=== PATIENT | female | born 1980 | race Caucasian/White ===

== ENCOUNTER 2020-10-09 08:10 | Emergency (ER) | payer BC, OTHER ==
[~2020-10-09] VITALS: Ht 162.6 cm; Wt 91.2 kg
[~2020-10-09 08:10] MED LIST: ACYC800 PO; ALBU90OI61 INH; ANTIBIOTIC; BCP; CEPH500 PO; CODGUAEL PO; Crutch1 EACH MISC; FAMC500 PO; FAMO20 PO; HYDACE5 PO; Norco 5-325 Ta1 EACH PO; OXYACE5T PO; PROM25 PO; RXCLIN PO; RXHYDACE PO; RXPROM25 PO; SULTRIDS PO; TRAM50 PO
[2020-10-09] MEDS ORDERED: PRENATAL TABLE1 EAC2 PO (08:25)
== END 2020-10-09 10:25 | disposition home or self-care (01) ==
LOC: ER 08:10
DX: O99.891 Other specified diseases and conditions complicating pregnancy (principal); R10.32 Left lower quadrant pain; Z88.2 Allergy status to sulfonamides; Z88.1 Allergy status to other antibiotic agents; Z88.0 Allergy status to penicillin; Z3A.20 20 weeks gestation of pregnancy
CPT/HCPCS: 76815; 99284-25

== ENCOUNTER 2021-04-29 06:14 | Day surgery (SDC) | payer BC, OTHER ==
[~2021-04-29] VITALS: Ht 162.6 cm; Wt 87.1 kg
[~2021-04-29 06:14] MED LIST changes: +IBUP800 PO; +PRENATAL TABLE1 EAC2 PO
--- NOTE | 2021-04-29 07:27 | NUR ---
04/29/21 [address] SANCHEZ OF CEPHLASPORIN ALLERGY, HE CONSULTS WITH PT AND KEEPS THE ORDER FOR ANCEF.
--- NOTE | 2021-04-29 08:05 | NUR ---
04/29/21 0805 Mitesh Lebron 0.15MG EPI ADDED TO 30 ML'S 0.75% MARCAINE TO ACHIEVE SOLUTION OF 0.75% MARCAINE WITH EPI 1:200,000. EPI DOSE VERIFIED BY DR. FRYE.
--- NOTE | 2021-04-29 09:15 | NUR ---
04/29/21 0915 Kaur Esparza PT STATES PAIN IS 6/10 AND REFUSES PAIN MEDS AT THIS TIME. BOYFRIEND CHAZ IS AT CHAIRSIDE.
== END 2021-04-29 10:05 | disposition home or self-care (01) ==
LOC: ORSCSDS 06:14
PROVIDERS: Obstetrics & Gynecology
PROC: 0UT74ZZ Resection of Bilateral Fallopian Tubes, Percutaneous Endoscopic Approach (ICD-10-PCS; principal; 2021-04-29 07:30)
DX: Z30.2 Encounter for sterilization (principal); Q50.5 Embryonic cyst of broad ligament; N80.3 Endometriosis of pelvic peritoneum; F17.210 Nicotine dependence, cigarettes, uncomplicated
CPT/HCPCS: 88302; A9270; J0171; J0690; J1100; J1885; J2405; J2704; J3010; J7120

== ENCOUNTER 2022-08-31 13:07 | Emergency (ER) | payer BC, OTHER ==
[~2022-08-31] VITALS: Ht 162.6 cm; Wt 85.7 kg
[2022-08-31 13:31] LABS: Source, Urine Clean Catch
[2022-08-31 13:42] LABS: Appearance, Urine Clear (Clear); Bilirubin, Urine Neg (Neg); Blood, Urine Neg (Neg); Color, Urine Yellow (P-Yellow); Glucose Qualitative, Urine Neg (Neg); Ketones, Urine Neg (Neg); Leukocyte Esterase, Urine 1+ (Neg); Nitrite, Urine Neg (Neg); Protein, Urine 1+ (Neg); Specific Gravity, Urine 1.025 (1.003-1.022); Urobilinogen, Urine 1+ (Normal)
[2022-08-31 13:49] LABS: Bacteria Mod /hpf; Red Blood Cells, Urine 0-2 /hpf (0-2); Squamous Epithelial Cells Few /hpf (Few)
[2022-08-31 13:58] LABS: BASOPHILS ABSOLUTE AUTO 0.02 K/mm3 (0.00-0.23); BASOPHILS PERCENT AUTO 0 % (0-2); EOSINOPHILS ABSOLUTE AUTO 0.09 K/mm3 (0.00-0.68); EOSINOPHILS PERCENT AUTO 1 % (0-6); Hematocrit 36.9 % (33.0-51.0); Hemoglobin 12.6 g/dL (11.5-16.0); IMMATURE GRAN ABSOLUTE AUTO 0.02 K/mm3 (0.00-0.10); IMMATURE GRAN PERCENT AUTO 0 % (0-1); LYMPHOCYTES ABSOLUTE AUTO 2.15 K/mm3 (0.84-5.20); LYMPHOCYTES PERCENT AUTO 29 % (21-46); MONOCYTES ABSOLUTE AUTO 0.58 K/mm3 (0.16-1.47); MONOCYTES PERCENT AUTO 8 % (4-13); Mean Corpuscular HGB 31.9 pg (26.0-34.0); Mean Corpuscular HGB Conc 34.1 g/dL (31.5-36.5); Mean Corpuscular Volume 93 fL (80-100); Mean Platelet Volume 10.5 fL (9.1-12.4); NEUTROPHILS ABSOLUTE AUTO 4.48 K/mm3 (1.96-9.15); NEUTROPHILS PERCENT AUTO 61 % (41-73); Platelet Count 311 K/mm3 (150-400); RDW Coefficient Variation 12.7 % (11.7-14.2); RDW Standard Deviation 43.7 fL (35.1-46.3); Red Blood Cell Count 3.95 M/mm3 (3.80-5.20); White Blood Cell Count 7.34 K/mm3 (4.00-11.30)
[2022-08-31 14:16] LABS: Albumin, Blood 3.6 g/dL (3.4-5.0); Bilirubin, Total 0.5 mg/dL (0.1-1.0); Bun/Creatinine Ratio 12.2 (12.0-20.0); Calcium, Blood 8.7 mg/dL (8.5-10.1); Creatinine, Blood 0.82 mg/dL (0.40-1.00); Globulin, Blood 3.5 g/dL (2.2-4.0); Potassium, Blood 3.5 mmol/L (3.5-5.5); Total Protein, Blood 7.1 g/dL (6.4-8.2)
[2022-08-31 15:50] VITALS: BP 146/98
[2022-08-31] MEDS ORDERED: NYSTATIN-TRIAMC15 GM TOP (16:50)
[2022-08-31] MEDS ORDERED: NYSTOP15 GM TOP (16:50)
[2022-08-31] MEDS ORDERED: EUTHYROX88 MC1 PO (16:51)
[2022-08-31] MEDS ORDERED: ALDACTONE100 MG PO (16:53)
[2022-08-31] MEDS ORDERED: Pepcid40 MG PO (18:15)
[2022-08-31] MEDS ORDERED: HYDR1TAB94 PO (18:15)
[2022-08-31] MEDS ORDERED: ONDA4ODT SL (18:15)
== END 2022-08-31 18:55 | disposition home or self-care (01) ==
LOC: ER 13:07
PROVIDERS: Student in an Organized Health Care Education/Training Program
DX: R10.11 Right upper quadrant pain (principal); Z88.2 Allergy status to sulfonamides; Z88.1 Allergy status to other antibiotic agents; Z88.0 Allergy status to penicillin; F17.210 Nicotine dependence, cigarettes, uncomplicated
CPT/HCPCS: 36415; 74177; 76705; 80053; 81001; 81025; 83690; 85025; 87086; 93005; 93010; 96374-59; 96375; 99284-25; J1885; J2405; J7120; Q9967

== ENCOUNTER 2022-09-07 08:03 | Emergency (ER) | payer BC, OTHER ==
[~2022-09-07] VITALS: Ht 162.6 cm; Wt 90.3 kg
[~2022-09-07 08:03] MED LIST changes: +ALDACTONE100 MG PO; +EUTHYROX88 MC1 PO; +HYDR1TAB94 PO; +NYSTATIN-TRIAMC15 GM TOP; +NYSTOP15 GM TOP; +ONDA4ODT SL; +Pepcid40 MG PO
[2022-09-07 08:20] VITALS: BP 140/99
[2022-09-07 09:56] LABS: BASOPHILS ABSOLUTE AUTO 0.04 K/mm3 (0.00-0.23); BASOPHILS PERCENT AUTO 1 % (0-2); EOSINOPHILS ABSOLUTE AUTO 0.09 K/mm3 (0.00-0.68); EOSINOPHILS PERCENT AUTO 2 % (0-6); Hematocrit 41.5 % (33.0-51.0); Hemoglobin 14.2 g/dL (11.5-16.0); IMMATURE GRAN ABSOLUTE AUTO 0.01 K/mm3 (0.00-0.10); IMMATURE GRAN PERCENT AUTO 0 % (0-1); LYMPHOCYTES PERCENT AUTO 27 % (21-46); MONOCYTES ABSOLUTE AUTO 0.47 K/mm3 (0.16-1.47); MONOCYTES PERCENT AUTO 9 % (4-13); Mean Corpuscular HGB 31.8 pg (26.0-34.0); Mean Corpuscular HGB Conc 34.2 g/dL (31.5-36.5); Mean Corpuscular Volume 93 fL (80-100); Mean Platelet Volume 10.9 fL (9.1-12.4); NEUTROPHILS PERCENT AUTO 62 % (41-73); Platelet Count 316 K/mm3 (150-400); RDW Coefficient Variation 12.6 % (11.7-14.2); RDW Standard Deviation 43.3 fL (35.1-46.3); Red Blood Cell Count 4.46 M/mm3 (3.80-5.20); White Blood Cell Count 5.51 K/mm3 (4.00-11.30)
[2022-09-07 10:35] LABS: Albumin, Blood 4.1 g/dL (3.4-5.0); Albumin/Globulin Ratio 1.1 (0.8-1.8); Bilirubin, Direct 0.1 mg/dL (0.0-0.3); Bilirubin, Indirect 0.4 mg/dL (0.1-0.7); Bilirubin, Total 0.5 mg/dL (0.1-1.0); Bun/Creatinine Ratio 12.4 (12.0-20.0); Calcium, Blood 9.4 mg/dL (8.5-10.1); Creatinine, Blood 0.81 mg/dL (0.40-1.00); Globulin, Blood 3.7 g/dL (2.2-4.0); Potassium, Blood 4.1 mmol/L (3.5-5.5); Total Protein, Blood 7.8 g/dL (6.4-8.2)
[2022-09-07] MEDS ORDERED: TRIDERM28.4 GM TOP (10:50)
== END 2022-09-07 10:57 | disposition home or self-care (01) ==
LOC: ER 08:03
PROVIDERS: Physician Assistant
DX: R10.11 Right upper quadrant pain (principal); R21 Rash and other nonspecific skin eruption; R11.0 Nausea; Z88.2 Allergy status to sulfonamides; Z88.1 Allergy status to other antibiotic agents; Z88.0 Allergy status to penicillin; Z79.899 Other long term (current) drug therapy; F17.210 Nicotine dependence, cigarettes, uncomplicated
CPT/HCPCS: 36415; 76705; 80053; 82248; 83690; 84703; 85025; 96372; 99283-25; A9270; J3301